=== PATIENT | male | born 1965 | race Caucasian/White ===

== ENCOUNTER 2023-01-22 11:00 | Outpatient (RCR) | payer OTHER, SELFPAY ==
--- NOTE | 2022-12-11 18:27 | PTOPEVAL1 ---
Assessment and note entered by Bruno Pierce, PT Evaluation Information Assessment Status Evaluation Diagnosis low back pain lumbar region Subjective Information Saul has been having increase back pain especially with extension. His pain is relieved with flexion exercises. He has had previous back surgeries with the last one about 2 years ago and thinks he needs to have his surgeon look at his back again. Reports the pain is a little better since he retired and does not have to put so much time behind the wheel driving. Formerly worked for a [employer]. Clinical summary Saul is a 57 year old male coming into the clinic for prehab strengthening of his lower back and core for a back surgery. He is showing improved pain and symptoms with flexion exercises compared to extension. Will work on strengthening along with aquatic therapy for reduced stress on the back and modalities for pain. These treatments will address the objective and functional deficits as defined above. The patient will be advanced safely and appropriately in order for the patient to progress towards his/her prior level of function. Additional exercises will be introduced and as well as a comprehensive home exercise program upon discharge, if needed, ?to ensure carryover of functional gains achieved in the clinic. This treatment plan has been reviewed and agreement upon by the patient.
--- NOTE | 2022-12-26 15:12 | PCPTNOTE ---
pt called and canceled today's appt;
--- NOTE | 2023-01-02 09:27 | PCPTNOTE ---
pt called and canceled today's aquatic treatment appointment;
--- NOTE | 2023-01-22 11:44 | PTOPDC ---
Assessment and note entered by Heaven Coker DPT Evaluation Information Assessment Status Discharge Diagnosis low back pain lumbar region Subjective Information Pt reports he does not think therapy is helping. Highest pain in the last week 06/25 and lowest / . May get very limited relief from manual techniques in therapy. Reports he sometimes feels worse after his exercises at home. Significant difficulty doing laundry, lifting a gallon of milk , or staying in a prolonged position. Driving causes a lot of pain more than 10-15 minutes. No MRI scheduled yet. Goes back to February [address] Pond. Reported Pain Level Pain Score 7: Self Report Assessment PT Clinical Summary The patient has reached a plateau in progress. He reports minimal change after manual treatments in therapy and feels worse after performing HEP. Continues to have high pain and difficulty with most activities including sitting, standing, and driving. He demonstrates no objective progress this visit. Due to his plateau, plan to discharge at this time. May consider 1 visit more for TENS unit training if needed. Plan of Care PT Services Indicated No Treatment Frequency and discharge unless 1 more visit needed for TENS unit Duration training
== END 2023-02-23 09:17 | disposition home or self-care (01) ==
LOC: ANHPT 11:00
PROVIDERS: PCP Neurological Surgery; Visit Provider Neurological Surgery
DX: Z48.89 Encounter for other specified surgical aftercare (principal); M54.50 Low back pain, unspecified; Z98.1 Arthrodesis status
CPT/HCPCS: 97014; 97110; 97113; 97140; 97161; G0283